=== PATIENT | male | born 1985 | race Two or more races ===

== ENCOUNTER 2023-07-27 23:41 | Emergency (ER) | payer OTHER ==
[~2023-07-27] VITALS: Ht 172.7 cm; Wt 99.8 kg
[2023-07-28] MEDS ORDERED: PANTOPRAZOLE 40 MG VIAL IV ONE (01:00)
[2023-07-28] MEDS ORDERED: KETOROLAC TROMETHAMINE 15 MG/ML VIAL IV ONE (01:00)
[2023-07-28] MEDS ORDERED: KETOROLAC TROMETHAMINE 15 MG/ML VIAL ONE (01:08)
[2023-07-28] MEDS ORDERED: PANTOPRAZOLE 40 MG VIAL ONE (01:09)
[2023-07-28 01:46] LABS: BASOPHILS % (AUTO) 0.3 % (0.0-2.0); EOSINOPHILS # (AUTO) 0.4 K/uL (0.0-0.7); EOSINOPHILS % (AUTO) 3.9 % (0.0-6.0); HEMATOCRIT 44 % (39-51); HEMOGLOBIN 14.9 g/dL (13.5-17.5); LYMPHOCYTES # (AUTO) 3.6 K/uL (0.8-4.8); MEAN CORPUSCULAR HEMOGLOBIN 30 PG (26.0-33.0); MEAN CORPUSCULAR HGB CONC 34 g/dl (31.0-36.0); MEAN CORPUSCULAR VOLUME 90 fL (80-96); MONOCYTES # (AUTO) 1.1 K/uL (0.1-1.30); MONOCYTES % (AUTO) 10.1 % (2.0-12.0); NEUTROPHILS # (AUTO) 5.5 K/uL (1.8-8.9); NEUTROPHILS % (AUTO) 51.7 % (43.0-81.0); PLATELET COUNT (AUTO) 259 K/uL (150-450); RED BLOOD CELL COUNT(AUTO) 4.91 MIL/uL (4.5-6.0); RED CELL DISTRIBUTION WIDTH 13.9 % (11.5-15.0); WHITE BLOOD COUNT (AUTO) 10.5 K/uL (4.3-11.0)
[2023-07-28 01:47] LABS: APPEARANCE,URINE CLEAR (CLEAR); BILIRUBIN,URINE NEGATIVE (NEGATIVE); BLOOD, URINE NEGATIVE Ery/uL (NEGATIVE); COLOR,URINE YELLOW (YELLOW); KETONES,URINE TRACE mg/dL (NEGATIVE); LEUKOCYTE ESTERASE ,URINE NEGATIVE (NEGATIVE); NITRITE, URINE NEGATIVE (NEGATIVE); PH,URINE 5.5 (5.0-8.0); PROTEIN,URINE NEGATIVE (NEGATIVE); UGLUCOSE NEGATIVE (NEGATIVE)
[2023-07-28 01:56] LABS: CALCIUM, SERUM 9.4 mg/dL (8.5-10.1); POTASSIUM 3.7 mmol/L (3.5-5.1)
[2023-07-28 02:00] LABS: ALBUMIN 3.7 g/dL (3.4-5.0); BILIRUBIN,DIRECT 0.1 mg/dL (0.0-0.2); BILIRUBIN,TOTAL 0.5 mg/dL (0.2-1.0); TOTAL PROTEIN, SERUM 8.1 g/dL (6.4-8.2)
[2023-07-28] MEDS ORDERED: KETOROLAC TROMETHAMINE INJ 30 MG/ML VIAL IV ONE (04:30)
[2023-07-28] MEDS ORDERED: IBUP-1953 PO (04:48)
[2023-07-28] MEDS ORDERED: AMOX-430 PO (04:48)
[2023-07-28] MEDS ORDERED: KETOROLAC TROMETHAMINE INJ 30 MG/ML VIAL ONE (04:51)
[2023-07-28 04:58] VITALS: BP 136/90; TEMP 98.8; O2SAT 96
== END 2023-07-28 04:59 | disposition home or self-care (01) ==
LOC: ER 23:44
DX: A09 Infectious gastroenteritis and colitis, unspecified (principal); I88.0 Nonspecific mesenteric lymphadenitis; R10.12 Left upper quadrant pain
CPT/HCPCS: 99285; 74176; 96374; 71045; 96375; 96376; 85025; 80048; 83690; 80076; 81003; 36415; J1885 ×2; C9113

== ENCOUNTER 2024-05-07 10:43 | Emergency (ER) | payer OTHER ==
[~2024-05-07] VITALS: Ht 172.7 cm; Wt 107.5 kg
[~2024-05-07 10:43] MED LIST: AMOX-430 PO; IBUP-1953 PO
[2024-05-07 10:56] VITALS: BP 147/84; TEMP 98
[2024-05-07 12:12] VITALS: O2SAT 97
== END 2024-05-07 12:13 | disposition home or self-care (01) ==
LOC: ER 10:49
DX: T59.91XA Toxic effect of unspecified gases, fumes and vapors, accidental (unintentional), initial encounter (principal); R11.0 Nausea; R51.9 Headache, unspecified; R53.83 Other fatigue; F17.200 Nicotine dependence, unspecified, uncomplicated; Y92.89 Other specified places as the place of occurrence of the external cause